=== PATIENT | female | born 1955 | race Caucasian/White ===

== ENCOUNTER → 2017-06-17 | Outpatient (CLI) | payer BC, OTHER ==
[~2017-06-17] MED LIST: CALC-534 PO; LEVO100T5 PO; LISI-167 PO; MULT-658 PO; OMEG100023 PO; PLAN450T PO; RED600CA2 PO; magnesium PO
[2017-06-17 11:00] LABS: PATH.CAST-FLAG NOT PRESENT; SPERM-FLAG NOT PRESENT; SRC-FLAG NOT PRESENT; XTAL-FLAG NOT PRESENT; YLC-FLAG NOT PRESENT
[2017-06-17 11:02] LABS: HEMATOCRIT 44.1 % (34.6-47.8); HEMOGLOBIN 14.8 g/dL (11.7-16.4); WHITE BLOOD COUNT 11.4 x10^3/uL (3.4-10)
[2017-06-17 11:09] LABS: BLOOD UREA NITROGEN 15 mg/dL (7-18)
[2017-06-17 11:13] LABS: ASPARTATE AMINO TRANSFERASE 17 U/L (15-37)
== END | disposition home or self-care (01) ==
LOC: STAR 09:42
PROVIDERS: ATTEND Obstetrics & Gynecology
DX: Z01.818 Encounter for other preprocedural examination (principal); D25.9 Leiomyoma of uterus, unspecified
CPT/HCPCS: 36415; 71020; 80053; 81001; 85025; 87086; 93005

== ENCOUNTER 2017-07-03 08:42 | Inpatient (IN) | payer BC, OTHER ==
[2017-06-17 10:09] VITALS: BP 155/90
[~2017-07-03] VITALS: Ht 170.2 cm; Wt 90.9 kg
[2017-07-03] MEDS ORDERED: LACTATED RINGERS 1,000 ML IV SCH (09:11)
[2017-07-03] MEDS ORDERED: LIDOCAINE 1%, 2ML SQ PRN (09:30)
[2017-07-03] MEDS ORDERED: GABAPENTIN 300 MG CAPSULE PO ONE (09:30)
[2017-07-03] MEDS ORDERED: OxyconTIN ER 10 MG TAB.ER PO ONE (09:30)
[2017-07-03] MEDS ORDERED: ACETAMINOPHEN 500 MG TABLET PO PRN (09:30)
[2017-07-03] MEDS ORDERED: GLYCOPYRROLATE 0.2MG/1ML, 5ML ONE ×2 (10:15)
[2017-07-03] MEDS ORDERED: NEOSTIGMINE 1 MG/ML, 10ML ONE (10:15)
[2017-07-03] MEDS ORDERED: DEXAMETHASONE 4 MG/ML, 1ML ONE (10:15)
[2017-07-03] MEDS ORDERED: ROCURONIUM 10 MG/ML,10ML ONE (10:15)
[2017-07-03] MEDS ORDERED: KETAMINE 10 MG/ML, 20ML ONE (10:15)
[2017-07-03] MEDS ORDERED: MIDAZOLAM 1 MG/ML, 2ML ONE (10:15)
[2017-07-03] MEDS ORDERED: CEFAZOLIN 1,000 MG ONE (10:15)
[2017-07-03] MEDS ORDERED: FENTANYL PF 100 MCG/2ML ONE (10:15)
[2017-07-03] MEDS ORDERED: PROPOFOL 10 MG/ML, 20ML ONE (10:15)
[2017-07-03] MEDS ORDERED: THROMBIN 20,000 UNIT VIAL TP ONE (11:52)
[2017-07-03] MEDS ORDERED: DIAZEPAM 5 MG/ML, 10ML VIAL IVPush PRN (12:00)
[2017-07-03] MEDS ORDERED: HYDROmorphone 1 MG/ML, 1ML IV PRN (12:00)
[2017-07-03] MEDS ORDERED: OXYcodone 5 MG/5 ML ORAL.SOL UDC PO PRN ×2 (12:00→16:00)
[2017-07-03] MEDS ORDERED: PROMETHAZINE 25 MG/ML, 1ML IV PRN (12:00)
[2017-07-03] MEDS ORDERED: KETOROLAC 30 MG/1 ML IVPush ONE (14:00)
[2017-07-03] MEDS: FENTANYL PF 100 MCG/2ML IV PRN ×4 (14:40→15:10)
[2017-07-03 15:40] VITALS: BP 133/75
[2017-07-03] MEDS ORDERED: ONDANSETRON 2MG/ML, 2ML IV PRN (16:00)
[2017-07-03 16:15] VITALS: BP 131/75
[2017-07-03 16:45] VITALS: BP 130/80
[2017-07-03] MEDS: SIMETHICONE 80 MG CHEW TAB PO SCH ×2 (17:49→22:15)
[2017-07-03] MEDS: POTASSIUM CHLORIDE 10 MEQ in LACTATED RINGERS 1,000 ML IV SCH (17:49)
[2017-07-03] MEDS ORDERED: KETOROLAC 30 MG/1 ML IV PRN (20:00)
[2017-07-03 20:14] LABS: HEMOGLOBIN 11.4 g/dL (11.7-16.4); WHITE BLOOD COUNT 12.3 x10^3/uL (3.4-10)
[2017-07-03] MEDS: CEFAZOLIN PMX 2GM/50ML 50 ML IVPB SCH (20:45)
[2017-07-03 20:58] VITALS: BP 121/69
[2017-07-04 00:56] VITALS: BP 124/66
[2017-07-04] MEDS: POTASSIUM CHLORIDE 10 MEQ in LACTATED RINGERS 1,000 ML IV SCH ×2 (02:39→09:00)
[2017-07-04] MEDS: CEFAZOLIN PMX 2GM/50ML 50 ML IVPB SCH (04:32)
[2017-07-04 05:48] LABS: HEMATOCRIT 30.5 % (34.6-47.8); HEMOGLOBIN 10.4 g/dL (11.7-16.4)
[2017-07-04 07:45] VITALS: BP 143/73
[2017-07-04] MEDS ORDERED: IBUP-1222 PO (08:33)
[2017-07-04] MEDS ORDERED: OXYC-302 PO (08:33)
[2017-07-04] MEDS ORDERED: IRON1TAB2 PO (08:37)
[2017-07-04] MEDS: SIMETHICONE 80 MG CHEW TAB PO SCH (09:18)
== END 2017-07-04 10:56 | disposition home or self-care (01) | DRG 743 ==
LOC: ORIP 08:42 → 2NW 15:32
PROVIDERS: ADMIT Obstetrics & Gynecology; ATTEND Obstetrics & Gynecology
PROC: 0UT60ZZ Resection of Left Fallopian Tube, Open Approach (ICD-10-PCS; 2017-07-03)
PROC: 0UT10ZZ Resection of Left Ovary, Open Approach (ICD-10-PCS; 2017-07-03)
PROC: 0TJB8ZZ Inspection of Bladder, Via Natural or Artificial Opening Endoscopic (ICD-10-PCS; 2017-07-03)
PROC: 0UT90ZZ Resection of Uterus, Open Approach (ICD-10-PCS; principal; 2017-07-03 10:30)
DX: D25.9 Leiomyoma of uterus, unspecified (principal); E03.9 Hypothyroidism, unspecified; I10 Essential (primary) hypertension; K66.0 Peritoneal adhesions (postprocedural) (postinfection); N85.6 Intrauterine synechiae; Z78.0 Asymptomatic menopausal state; Z80.3 Family history of malignant neoplasm of breast; Z82.49 Family history of ischemic heart disease and other diseases of the circulatory system
CPT/HCPCS: 36415; 85014; 85018; 85025; 86850; 86900; 88307; J0690; J1100; J1885; J2250; J2405; J2704; J2710; J3010; J3480; J3490; J7120

== ENCOUNTER → 2018-03-25 | Outpatient (CLI) | payer BC, OTHER ==
[~2018-03-25] MED LIST changes: +IBUP-1222 PO; +IRON1TAB2 PO; +OMNIPAQUE 350 MG/ML, 100ML BOTTLE ONE; +OXYC-302 PO
== END | disposition home or self-care (01) ==
LOC: CFH 11:25
PROVIDERS: ATTEND Physician Assistant
DX: D35.02 Benign neoplasm of left adrenal gland (principal); N28.1 Cyst of kidney, acquired; I10 Essential (primary) hypertension; E03.9 Hypothyroidism, unspecified; E78.5 Hyperlipidemia, unspecified; K21.9 Gastro-esophageal reflux disease without esophagitis; F41.9 Anxiety disorder, unspecified
CPT/HCPCS: 74177; Q9967

== ENCOUNTER → 2018-07-22 | Outpatient (CLI) | payer BC, OTHER ==
[~2018-07-22] MED LIST changes: -OMNIPAQUE 350 MG/ML, 100ML BOTTLE ONE
== END | disposition home or self-care (01) ==
LOC: CFH 07:23
PROVIDERS: ATTEND Physician Assistant
DX: M50.323 Other cervical disc degeneration at C6-C7 level (principal); M12.88 Other specific arthropathies, not elsewhere classified, other specified site; M25.78 Osteophyte, vertebrae; D18.09 Hemangioma of other sites; M48.061 Spinal stenosis, lumbar region without neurogenic claudication; M48.02 Spinal stenosis, cervical region; E78.5 Hyperlipidemia, unspecified; I10 Essential (primary) hypertension
CPT/HCPCS: 72141; 72148

== ENCOUNTER → 2019-07-15 | Outpatient (CLI) | payer BC, OTHER | END | disposition home or self-care (01) | LOC: CFH 10:48 | PROVIDERS: ATTEND Nurse Practitioner Primary Care | DX: M85.88 Other specified disorders of bone density and structure, other site (principal); E03.9 Hypothyroidism, unspecified; E78.2 Mixed hyperlipidemia; I10 Essential (primary) hypertension; K21.9 Gastro-esophageal reflux disease without esophagitis; Z79.899 Other long term (current) drug therapy | CPT/HCPCS: 77080 ==